=== PATIENT | male | born 2000 | race Caucasian/White ===

== ENCOUNTER 2021-09-29 11:19 | Inpatient (IN) | payer OTHER ==
[~2021-09-29] VITALS: Ht 182.9 cm; Wt 98.9 kg
[2021-09-29] VITALS (8 sets, daily range): BP systolic 121–146; BP diastolic 58–74
[2021-09-29] MEDS ORDERED: OxyCODONE HCL 10 MG IR TABLET PO PRN (16:00)
[2021-09-29] MEDS ORDERED: ONDANSETRON HCL 4 MG TABLET PO PRN (16:15)
[2021-09-29] MEDS: OxyCODONE HCL 5 MG IR TABLET PO PRN (16:26)
[2021-09-29] MEDS: ACETAMINOPHEN 325 MG TABLET PO PRN (19:07)
[2021-09-29] MEDS: ETHYL ALCOHOL 62% ANTISEPTIC NASAL SANITIZER 0.6 ML AMPUL NASAL SCH (20:41)
[2021-09-29] MEDS: MELATONIN 3 MG TABLET PO PRN (20:43)
[2021-09-29] MEDS: RIVAROXABAN 15 MG TABLET PO SCH (20:43)
[2021-09-29] MEDS: DOCUSATE SODIUM 100 MG CAPSULE PO SCH (20:43)
[2021-09-29] MEDS: SENNA 187 MG TABLET PO SCH (20:43)
[2021-09-30 00:09] VITALS: BP 122/59
[2021-09-30 00:12] VITALS: BP 122/59
[2021-09-30] MEDS: OxyCODONE HCL 5 MG IR TABLET PO PRN ×2 (01:38→09:38)
[2021-09-30 08:01] VITALS: BP 115/65
[2021-09-30 08:26] LABS: BASOPHILS % (AUTO) 0.6 % (0.0-2.0); EOSINOPHILS % (AUTO) 2.5 % (1.0-6.0); HEMATOCRIT 26.7 % (41-53); HEMOGLOBIN 8.9 g/dL (13.5-17.5); LYMPHOCYTES # (AUTO) 1.3 K/uL (1.0-4.8); LYMPHOCYTES % (AUTO) 12.6 % (22.0-44.0); MEAN CORPUSCULAR HEMOGLOBIN 30.8 pg (26.0-34.0); MEAN CORPUSCULAR HGB CONC 33.5 G/dL (31.0-37.0); MEAN CORPUSCULAR VOLUME 92 fL (80-100); MONOCYTES # (AUTO) 0.8 K/uL (0.1-1.0); MONOCYTES % (AUTO) 7.4 % (2.0-9.0); NEUTROPHILS # (AUTO) 8.1 K/uL (1.8-7.7); NEUTROPHILS % (AUTO) 76.9 % (40.0-70.0); PLATELET COUNT (AUTO) 735 K/uL (150-450); RED CELL DISTRIBUTION WIDTH 16.2 % (11.5-14.5)
[2021-09-30] MEDS: RIVAROXABAN 15 MG TABLET PO SCH ×2 (08:45→21:36)
[2021-09-30] MEDS: CELECOXIB 200 MG CAPSULE PO SCH (08:45)
[2021-09-30] MEDS: DOCUSATE SODIUM 100 MG CAPSULE PO SCH ×2 (08:45→21:35)
[2021-09-30] MEDS: ETHYL ALCOHOL 62% ANTISEPTIC NASAL SANITIZER 0.6 ML AMPUL NASAL SCH ×2 (08:45→21:35)
[2021-09-30 09:03] LABS: ALANINE AMINOTRANSFERASE 152 U/L (12-78); ALBUMIN 2.5 g/dL (3.4-5.0); ALKALINE PHOSPHATASE 345 U/L (46-116); ANION GAP 7 mmol/L (8-16); ASPARTATE AMINOTRANSFERASE 79 U/L (15-37); BILIRUBIN,TOTAL 0.5 mg/dL (0.1-1.0); CALCIUM, TOTAL 8.8 mg/dL (8.8-10.5); CARBON DIOXIDE 25 mmol/L (22-29); CHLORIDE 101 mmol/L (98-107); CREATININE 0.65 mg/dL (0.60-1.30); GLOMERULAR FILTR. RATE CALC > 60 mL/min (>60); GLUCOSE,RANDOM 90 mg/dL (70-110); POTASSIUM 4.2 mmol/L (3.5-5.1); SODIUM SERUM 133 mmol/L (136-145); TOTAL PROTEIN, SERUM 7.9 g/dL (6.4-8.2); UREA NITROGEN, BLOOD 17 mg/dL (7-18)
[2021-09-30 10:09] VITALS: BP 115/65
[2021-09-30] MEDS: ACETAMINOPHEN 325 MG TABLET PO PRN ×2 (12:06→19:33)
[2021-09-30 16:00] VITALS: BP 119/72
[2021-09-30 16:08] VITALS: BP 119/72
[2021-09-30] MEDS: MELATONIN 3 MG TABLET PO PRN (21:35)
[2021-09-30] MEDS: SENNA 187 MG TABLET PO SCH (21:35)
[2021-09-30] MEDS: GABAPENTIN 300 MG CAPSULE PO PRN (21:35)
[2021-10-01 04:55] VITALS: BP 120/56
[2021-10-01] MEDS: ACETAMINOPHEN 325 MG TABLET PO PRN ×3 (04:55→15:24)
[2021-10-01] MEDS: ETHYL ALCOHOL 62% ANTISEPTIC NASAL SANITIZER 0.6 ML AMPUL NASAL SCH ×2 (09:10→20:41)
[2021-10-01] MEDS: RIVAROXABAN 15 MG TABLET PO SCH ×2 (09:11→20:41)
[2021-10-01] MEDS: CELECOXIB 200 MG CAPSULE PO SCH (09:11)
[2021-10-01] MEDS: DOCUSATE SODIUM 100 MG CAPSULE PO SCH ×2 (09:12→20:40)
[2021-10-01] MEDS: GABAPENTIN 300 MG CAPSULE PO PRN ×2 (09:12→21:03)
[2021-10-01 09:15] VITALS: BP 118/78
[2021-10-01 10:30] VITALS: BP 118/78
[2021-10-01 15:24] VITALS: BP 127/60
[2021-10-01] MEDS: MELATONIN 3 MG TABLET PO PRN (20:40)
[2021-10-01] MEDS: SENNA 187 MG TABLET PO SCH (20:41)
[2021-10-02] VITALS: BP 127/64
[2021-10-02] MEDS: DOCUSATE SODIUM 100 MG CAPSULE PO SCH ×2 (07:57→20:28)
[2021-10-02] MEDS: ETHYL ALCOHOL 62% ANTISEPTIC NASAL SANITIZER 0.6 ML AMPUL NASAL SCH ×2 (07:57→20:28)
[2021-10-02] MEDS: RIVAROXABAN 15 MG TABLET PO SCH ×2 (07:57→20:28)
[2021-10-02] MEDS: CELECOXIB 200 MG CAPSULE PO SCH (07:57)
[2021-10-02 09:01] VITALS: BP 123/60
[2021-10-02] MEDS: ACETAMINOPHEN 325 MG TABLET PO PRN (09:01)
[2021-10-02 09:10] VITALS: BP 123/60
[2021-10-02 16:05] VITALS: BP 124/64
[2021-10-02] MEDS: SENNA 187 MG TABLET PO SCH (20:28)
[2021-10-02] MEDS: GABAPENTIN 300 MG CAPSULE PO PRN (20:29)
[2021-10-02] MEDS: MELATONIN 3 MG TABLET PO PRN (20:29)
[2021-10-02 23:00] VITALS: BP 124/64
[2021-10-03] VITALS: BP 105/58
[2021-10-03 06:53] LABS: ALANINE AMINOTRANSFERASE 85 U/L (12-78); ALBUMIN 2.8 g/dL (3.4-5.0); ALKALINE PHOSPHATASE 299 U/L (46-116); ANION GAP 9 mmol/L (8-16); ASPARTATE AMINOTRANSFERASE 25 U/L (15-37); BILIRUBIN,TOTAL 0.5 mg/dL (0.1-1.0); CALCIUM, TOTAL 8.9 mg/dL (8.8-10.5); CARBON DIOXIDE 25 mmol/L (22-29); CHLORIDE 102 mmol/L (98-107); CREATININE 0.75 mg/dL (0.60-1.30); GLOMERULAR FILTR. RATE CALC > 60 mL/min (>60); GLUCOSE,RANDOM 93 mg/dL (70-110); POTASSIUM 3.9 mmol/L (3.5-5.1); SODIUM SERUM 136 mmol/L (136-145); UREA NITROGEN, BLOOD 20 mg/dL (7-18)
[2021-10-03] MEDS: CELECOXIB 200 MG CAPSULE PO SCH (07:48)
[2021-10-03] MEDS: DOCUSATE SODIUM 100 MG CAPSULE PO SCH ×2 (07:49→20:37)
[2021-10-03] MEDS: ETHYL ALCOHOL 62% ANTISEPTIC NASAL SANITIZER 0.6 ML AMPUL NASAL SCH ×2 (07:49→20:37)
[2021-10-03] MEDS: RIVAROXABAN 15 MG TABLET PO SCH (07:49)
[2021-10-03 08:12] VITALS: BP 109/56
[2021-10-03] MEDS: ACETAMINOPHEN 325 MG TABLET PO PRN (08:12)
[2021-10-03 10:52] LABS: BASOPHILS % (AUTO) 0.6 % (0.0-2.0); EOSINOPHILS % (AUTO) 2.1 % (1.0-6.0); HEMATOCRIT 29.2 % (41-53); HEMOGLOBIN 9.7 g/dL (13.5-17.5); LYMPHOCYTES # (AUTO) 1.1 K/uL (1.0-4.8); LYMPHOCYTES % (AUTO) 14.1 % (22.0-44.0); MEAN CORPUSCULAR HEMOGLOBIN 29.5 pg (26.0-34.0); MEAN CORPUSCULAR HGB CONC 33.2 G/dL (31.0-37.0); MEAN CORPUSCULAR VOLUME 89 fL (80-100); MONOCYTES # (AUTO) 0.6 K/uL (0.1-1.0); MONOCYTES % (AUTO) 7.4 % (2.0-9.0); NEUTROPHILS # (AUTO) 6.1 K/uL (1.8-7.7); NEUTROPHILS % (AUTO) 75.8 % (40.0-70.0); RED BLOOD CELL COUNT(AUTO) 3.28 MIL/uL (4.50-5.90); RED CELL DISTRIBUTION WIDTH 16.1 % (11.5-14.5)
[2021-10-03 10:57] LABS: PLATELET COUNT (AUTO) 833 K/uL (150-450)
[2021-10-03 16:05] VITALS: BP 110/59
[2021-10-03] MEDS: GABAPENTIN 300 MG CAPSULE PO PRN (20:38)
[2021-10-03] MEDS: SENNA 187 MG TABLET PO SCH (20:38)
[2021-10-03] MEDS: MELATONIN 3 MG TABLET PO PRN (20:38)
[2021-10-04 05:46] VITALS: BP 115/64
[2021-10-04 07:30] VITALS: BP 119/60
[2021-10-04] MEDS: ETHYL ALCOHOL 62% ANTISEPTIC NASAL SANITIZER 0.6 ML AMPUL NASAL SCH ×2 (09:10→20:28)
[2021-10-04] MEDS: DOCUSATE SODIUM 100 MG CAPSULE PO SCH ×2 (09:10→20:30)
[2021-10-04] MEDS: CELECOXIB 200 MG CAPSULE PO SCH (09:11)
[2021-10-04] MEDS: ACETAMINOPHEN 325 MG TABLET PO PRN (10:36)
[2021-10-04 16:00] VITALS: BP 127/63
[2021-10-04] MEDS: MELATONIN 3 MG TABLET PO PRN (20:30)
[2021-10-04] MEDS: GABAPENTIN 300 MG CAPSULE PO PRN (20:30)
[2021-10-04] MEDS: SENNA 187 MG TABLET PO SCH (20:30)
[2021-10-04] MEDS: RIVAROXABAN 10 MG TABLET PO SCH (20:33)
[2021-10-04] MEDS ORDERED: RIVAROXABAN 15 MG TABLET PO SCH (21:00)
[2021-10-05 05:24] VITALS: BP 103/56
[2021-10-05 08:00] VITALS: BP 103/61
[2021-10-05] MEDS: ETHYL ALCOHOL 62% ANTISEPTIC NASAL SANITIZER 0.6 ML AMPUL NASAL SCH ×2 (08:14→21:06)
[2021-10-05] MEDS: DOCUSATE SODIUM 100 MG CAPSULE PO SCH ×2 (08:14→21:05)
[2021-10-05] MEDS: RIVAROXABAN 10 MG TABLET PO SCH ×2 (08:14→21:06)
[2021-10-05] MEDS: CELECOXIB 200 MG CAPSULE PO SCH (08:15)
[2021-10-05] MEDS: ACETAMINOPHEN 325 MG TABLET PO PRN (10:03)
[2021-10-05 16:00] VITALS: BP 120/53
[2021-10-05] MEDS: SENNA 187 MG TABLET PO SCH (21:06)
[2021-10-05] MEDS: MELATONIN 3 MG TABLET PO PRN (21:06)
[2021-10-06 00:38] VITALS: BP 116/53
[2021-10-06 08:30] VITALS: BP 109/76
[2021-10-06] MEDS: ETHYL ALCOHOL 62% ANTISEPTIC NASAL SANITIZER 0.6 ML AMPUL NASAL SCH ×2 (08:56→20:10)
[2021-10-06] MEDS: RIVAROXABAN 10 MG TABLET PO SCH ×2 (08:56→20:11)
[2021-10-06] MEDS: DOCUSATE SODIUM 100 MG CAPSULE PO SCH ×2 (08:56→20:11)
[2021-10-06] MEDS: CELECOXIB 200 MG CAPSULE PO SCH (08:57)
[2021-10-06 16:00] VITALS: BP 119/48
[2021-10-06] MEDS: SENNA 187 MG TABLET PO SCH (20:11)
[2021-10-06] MEDS: MELATONIN 3 MG TABLET PO PRN (20:11)
[2021-10-07] MEDS: GABAPENTIN 300 MG CAPSULE PO PRN ×2 (01:23→20:29)
[2021-10-07 01:31] VITALS: BP 124/65
[2021-10-07] MEDS: ETHYL ALCOHOL 62% ANTISEPTIC NASAL SANITIZER 0.6 ML AMPUL NASAL SCH ×2 (08:08→20:25)
[2021-10-07] MEDS: RIVAROXABAN 10 MG TABLET PO SCH ×2 (08:09→20:25)
[2021-10-07] MEDS: DOCUSATE SODIUM 100 MG CAPSULE PO SCH ×2 (08:10→20:25)
[2021-10-07] MEDS: CELECOXIB 200 MG CAPSULE PO SCH (08:10)
[2021-10-07 09:10] VITALS: BP 110/54
[2021-10-07 10:42] LABS: BASOPHILS % (AUTO) 0.9 % (0.0-2.0); EOSINOPHILS % (AUTO) 2.4 % (1.0-6.0); HEMOGLOBIN 10.1 g/dL (13.5-17.5); LYMPHOCYTES # (AUTO) 1.4 K/uL (1.0-4.8); LYMPHOCYTES % (AUTO) 19.8 % (22.0-44.0); MEAN CORPUSCULAR HEMOGLOBIN 29.2 pg (26.0-34.0); MEAN CORPUSCULAR HGB CONC 32.6 G/dL (31.0-37.0); MEAN CORPUSCULAR VOLUME 90 fL (80-100); MONOCYTES # (AUTO) 0.5 K/uL (0.1-1.0); MONOCYTES % (AUTO) 6.6 % (2.0-9.0); NEUTROPHILS # (AUTO) 4.9 K/uL (1.8-7.7); NEUTROPHILS % (AUTO) 70.3 % (40.0-70.0); PLATELET COUNT (AUTO) 637 K/uL (150-450); RED BLOOD CELL COUNT(AUTO) 3.46 MIL/uL (4.50-5.90); RED CELL DISTRIBUTION WIDTH 15.9 % (11.5-14.5)
[2021-10-07 16:18] VITALS: BP 112/60
[2021-10-07] MEDS: SENNA 187 MG TABLET PO SCH (20:25)
[2021-10-07] MEDS: MELATONIN 3 MG TABLET PO PRN (20:29)
[2021-10-08 04:00] VITALS: BP 108/59
[2021-10-08 08:10] VITALS: BP 110/55
[2021-10-08] MEDS: ETHYL ALCOHOL 62% ANTISEPTIC NASAL SANITIZER 0.6 ML AMPUL NASAL SCH ×2 (09:11→20:59)
[2021-10-08] MEDS: RIVAROXABAN 10 MG TABLET PO SCH (09:12)
[2021-10-08] MEDS: CELECOXIB 200 MG CAPSULE PO SCH (09:12)
[2021-10-08] MEDS: DOCUSATE SODIUM 100 MG CAPSULE PO SCH ×2 (09:12→20:59)
[2021-10-08 16:02] VITALS: BP 118/65
[2021-10-08] MEDS: SENNA 187 MG TABLET PO SCH (20:59)
[2021-10-08] MEDS ORDERED: RIVAROXABAN 15 MG TABLET PO SCH (21:00)
[2021-10-08] MEDS: GABAPENTIN 300 MG CAPSULE PO PRN (21:07)
[2021-10-08] MEDS: MELATONIN 3 MG TABLET PO PRN (21:07)
[2021-10-09 00:13] VITALS: BP 109/64
[2021-10-09 07:33] LABS: BASOPHILS % (AUTO) 1.1 % (0.0-2.0); EOSINOPHILS % (AUTO) 4.5 % (1.0-6.0); HEMOGLOBIN 10.9 g/dL (13.5-17.5); LYMPHOCYTES # (AUTO) 1.5 K/uL (1.0-4.8); MEAN CORPUSCULAR HEMOGLOBIN 29.7 pg (26.0-34.0); MEAN CORPUSCULAR HGB CONC 32.9 G/dL (31.0-37.0); MEAN CORPUSCULAR VOLUME 90 fL (80-100); MONOCYTES # (AUTO) 0.5 K/uL (0.1-1.0); MONOCYTES % (AUTO) 7.3 % (2.0-9.0); NEUTROPHILS # (AUTO) 4.3 K/uL (1.8-7.7); NEUTROPHILS % (AUTO) 64.1 % (40.0-70.0); PLATELET COUNT (AUTO) 526 K/uL (150-450); RED BLOOD CELL COUNT(AUTO) 3.66 MIL/uL (4.50-5.90); RED CELL DISTRIBUTION WIDTH 15.5 % (11.5-14.5)
[2021-10-09 08:05] LABS: ALANINE AMINOTRANSFERASE 49 U/L (12-78); ALBUMIN 3.1 g/dL (3.4-5.0); ALKALINE PHOSPHATASE 207 U/L (46-116); ANION GAP 8 mmol/L (8-16); ASPARTATE AMINOTRANSFERASE 20 U/L (15-37); BILIRUBIN,TOTAL 0.4 mg/dL (0.1-1.0); CALCIUM, TOTAL 8.7 mg/dL (8.8-10.5); CARBON DIOXIDE 26 mmol/L (22-29); CHLORIDE 106 mmol/L (98-107); CREATININE 0.76 mg/dL (0.60-1.30); GLOMERULAR FILTR. RATE CALC > 60 mL/min (>60); GLUCOSE,RANDOM 94 mg/dL (70-110); SODIUM SERUM 140 mmol/L (136-145); TOTAL PROTEIN, SERUM 7.5 g/dL (6.4-8.2); UREA NITROGEN, BLOOD 20 mg/dL (7-18)
[2021-10-09] MEDS: RIVAROXABAN 15 MG TABLET PO SCH ×2 (08:25→19:17)
[2021-10-09] MEDS: DOCUSATE SODIUM 100 MG CAPSULE PO SCH ×2 (08:25→20:31)
[2021-10-09] MEDS: ETHYL ALCOHOL 62% ANTISEPTIC NASAL SANITIZER 0.6 ML AMPUL NASAL SCH ×2 (08:25→20:31)
[2021-10-09] MEDS: CELECOXIB 200 MG CAPSULE PO SCH (08:25)
[2021-10-09 08:30] VITALS: BP 108/57
[2021-10-09 17:47] VITALS: BP 121/61
[2021-10-09] MEDS: SENNA 187 MG TABLET PO SCH (20:31)
[2021-10-09] MEDS: MELATONIN 3 MG TABLET PO PRN (20:37)
[2021-10-09] MEDS: GABAPENTIN 300 MG CAPSULE PO PRN (20:37)
[2021-10-10 06:22] VITALS: BP 100/56
[2021-10-10] MEDS: DOCUSATE SODIUM 100 MG CAPSULE PO SCH ×2 (07:39→20:09)
[2021-10-10] MEDS: CELECOXIB 200 MG CAPSULE PO SCH (07:39)
[2021-10-10] MEDS: RIVAROXABAN 15 MG TABLET PO SCH ×2 (07:39→17:35)
[2021-10-10] MEDS: ETHYL ALCOHOL 62% ANTISEPTIC NASAL SANITIZER 0.6 ML AMPUL NASAL SCH ×2 (07:39→20:09)
[2021-10-10 09:43] VITALS: BP 123/59
[2021-10-10 16:38] VITALS: BP 115/61
[2021-10-10] MEDS: SENNA 187 MG TABLET PO SCH (20:09)
[2021-10-10] MEDS: MELATONIN 3 MG TABLET PO PRN (20:09)
[2021-10-11 05:42] VITALS: BP 112/57
[2021-10-11] MEDS: RIVAROXABAN 15 MG TABLET PO SCH ×2 (08:10→17:33)
[2021-10-11] MEDS: ETHYL ALCOHOL 62% ANTISEPTIC NASAL SANITIZER 0.6 ML AMPUL NASAL SCH ×2 (08:11→20:07)
[2021-10-11] MEDS: CELECOXIB 200 MG CAPSULE PO SCH (08:11)
[2021-10-11] MEDS: DOCUSATE SODIUM 100 MG CAPSULE PO SCH ×2 (08:11→20:08)
[2021-10-11 08:29] VITALS: BP 107/71
[2021-10-11] MEDS ORDERED: GABA-1181 PO (11:26)
[2021-10-11] MEDS ORDERED: ACET325T51 PO (11:26)
[2021-10-11] MEDS ORDERED: RIVA15TA PO ×2 (11:26)
[2021-10-11 16:05] VITALS: BP 140/59
[2021-10-11] MEDS: MELATONIN 3 MG TABLET PO PRN (20:08)
[2021-10-11] MEDS: GABAPENTIN 300 MG CAPSULE PO PRN (20:08)
[2021-10-11] MEDS: SENNA 187 MG TABLET PO SCH (20:08)
[2021-10-12 06:00] VITALS: BP 115/56
[2021-10-12] MEDS: ETHYL ALCOHOL 62% ANTISEPTIC NASAL SANITIZER 0.6 ML AMPUL NASAL SCH (08:09)
[2021-10-12] MEDS: RIVAROXABAN 15 MG TABLET PO SCH (08:09)
[2021-10-12] MEDS: CELECOXIB 200 MG CAPSULE PO SCH (08:10)
[2021-10-12] MEDS: DOCUSATE SODIUM 100 MG CAPSULE PO SCH (08:10)
[2021-10-12 09:24] VITALS: BP 119/55
== END 2021-10-12 13:50 | disposition home or self-care (01) | DRG 563 ==
LOC: 2WR 13:55
PROVIDERS: ADMIT Physical Medicine & Rehabilitation; ATTEND Physical Medicine & Rehabilitation
DX: S82.141A Displaced bicondylar fracture of right tibia, initial encounter for closed fracture (principal); S72.431A Displaced fracture of medial condyle of right femur, initial encounter for closed fracture; S82.142A Displaced bicondylar fracture of left tibia, initial encounter for closed fracture; R53.81 Other malaise; S62.322A Displaced fracture of shaft of third metacarpal bone, right hand, initial encounter for closed fracture; S62.324A Displaced fracture of shaft of fourth metacarpal bone, right hand, initial encounter for closed fracture; S82.831A Other fracture of upper and lower end of right fibula, initial encounter for closed fracture; S82.832A Other fracture of upper and lower end of left fibula, initial encounter for closed fracture; K59.00 Constipation, unspecified; S70.12XA Contusion of left thigh, initial encounter; D64.9 Anemia, unspecified; S01.01XA Laceration without foreign body of scalp, initial encounter; G47.00 Insomnia, unspecified; R74.01 Elevation of levels of liver transaminase levels; V89.2XXA Person injured in unspecified motor-vehicle accident, traffic, initial encounter; Y93.89 Activity, other specified; Y92.89 Other specified places as the place of occurrence of the external cause; Y99.8 Other external cause status; Z79.01 Long term (current) use of anticoagulants
CPT/HCPCS: 80053; 85025; 87081; 92507; 92523; 93970; 97110; 97163; 97167; 97530; 97535; 99366